=== PATIENT | male | born 1960 | race African-American/Black ===

== ENCOUNTER 2021-01-13 19:29 | Inpatient (IN) | payer OTHER ==
[~2021-01-13] VITALS: Ht 180.3 cm; Wt 102.2 kg
--- NOTE | ~2021-01-13 | EMS ---
[facility] [address] [place] [address] EMS Patient Care Report Name: SAMUEL PASCUAL Room #: 170-10 ADM IN M.R.#: [id number] Admission: 01/13/21 Attend Phys: Pallavi Waldrop MD Discharge: Date of : 58 Report #: [id number] THIS REPORT FOR: //name// Report Transmitted: 01/13/2021 20:25 EMS Care Summary [facility] MED-ACT Incident [id number] @ 01/13/2021 18:57 Incident Location [address], [place] [address] Patient SAMUEL PASCUAL Male, 60 Years 1960 Patient Address [address] [place] [address] Patient History Hypertension (HTN),Pacemaker/AICD,Type 2 Diabetes,Cardiomyopathy, Patient Allergies Diphenhydramine,Sulfa, Patient Medications Unknown, Chief Complaint Unresponsive Disposition Transported No Lights/[place] Reason Unconscious/Fainting Transported To [facility] Narrative 60yom found sitting upright, appearing unresponsive in a chair, extremely diaphoretic in doorway of [facility], with no radial pulse present upon EMS assessment. It was reported that pt requested some water just prior to sitting down, but immediately upon sitting went unresponsive. Pt has history of [facility] [address] [place] [address] EMS Patient Care Report Name: SAMUEL PASCUAL Room #: 170-10 ADM IN Antwon.Annie.#: [id number] Admission: 01/13/21 Attend Phys: Pallavi Waldrop MD Discharge: Date of : 58 Report #: [id number] diabetes, but Raina GALAN found patients bG at 136 just prior to EMS arrival. Pt was with family at the time of incident who reported that pt has had no complaints today and no known vomiting/diarrhea. EMS is informed that pt has a "pacemaker/defibrillator," but other medical history is unknown at the time. Pt was mildly responsive to loud verbal/painful stimuli, but was unable to speak any words. Pt would open his eyes on occasion. Pt was team lifted from chair to cot and placed in trendelenburg position. Pt was secured to cot and moved outside to ambulance. Pt had significant improvement to his LOC upon laying supine for a short time and was able to open his eyes and speak. Pt was moved to ambulance for further evaluation and treatment. Pt reported that he was in from out of town today and was "just getting dinner." Pt stated that he has a history of cardiomyopathy and that is the cause of his hypotension. Pt stated it has happened in the past, but not for a "very long time." Pt stated he received his pacemaker/defibrillator in 2017 and has not had any issues since. Pt recalls asking for water, but this does not recall the events following waking up with EMS. Pt denied any shortness of breath, denied chest pain, N/V/D, recent illness/injury, and states that he feels "completely normal now." EKG and 12 Lead obtained and Raina GALAN spoke with patients on telephone. Pt agreed to transport to [facility] for further evaluation. An IV was established prior to departure of scene and a fluid bolus initiated. Pt remained conversational throughout transport with improvement to his vital signs and physical symptoms. Hospital was contacted with pt information only. Upon arrival to ER, pt is alert and oriented, vital signs improved, with dry skin. Pt was placed in a semi-fowlers position at that time to move inside. Just prior to moving patient from cot to ER bed, pt's skin became clammy again with a last BP that lower than the previous. Pt was again placed in a supine position just prior to sheet lifting him to hospital bed. Pt care was transferred to ER staff without incident. Initial Vitals @19:26BP: 59/38,SpO2: 100, @19:12P: 60, @19:14R: 14,BP: 79/49,Glucose: 136, @19:20P: 60,SpO2: 71, @19:16MI Suspected: false @19:24P: 60,SpO2: 71, @19:21P: 73,R: 14,BP: 86/39,Pain: 0/10,GCS: 15,Temp: 98.7F,SpO2: 95,Revised Trauma: 11, Assessments @19:07MENTAL:Confused,SKIN:Diaphoresis,HEENT:LUNG SOUNDS:General: No Abnormalities,ABDOMEN:General: No Abnormalities,PELVIS//GI:No Abnormalities,EXTREMITIES:Left Arm: No Abnormalities,Right Arm: No [facility] [address] [place] [address] EMS Patient Care Report Name: SAMUEL PASCUAL Room #: 170-10 ADM IN M.R.#: [id number] Admission: 01/13/21 Attend Phys: Pallavi Waldrop MD Discharge: Date of : 58 Report #: [id number] Abnormalities,Left Leg: No Abnormalities,Right Leg: No Abnormalities,PULSE:Radial: 2+ Normal,NEURO:No Abnormalities,@19:26MENTAL:Place Oriented,Person Oriented,Time Oriented,Event Oriented,SKIN:HEENT:Head/Face: No Abnormalities,LUNG SOUNDS:General: No Abnormalities,ABDOMEN:General: No Abnormalities,PELVIS//GI:No Abnormalities,EXTREMITIES:Left Arm: No Abnormalities,Right Arm: No Abnormalities,Left Leg: No Abnormalities,Right Leg: No Abnormalities,PULSE:NEURO:No Abnormalities, Impression Syncope / Fainting Procedures @19:07ALS AssessmentResponse: UnchangedSucceeded@19:1612-Lead ECGResponse: UnchangedSucceeded@19:16Normal Saline (.9% NaCl) 300cc (20 ga) Site: Antecubital-RightResponse: ImprovedSucceeded@19:26Surgical Mask on PatientResponse: Unchanged Timeline 18:56,Call Received 18:56,Psap Call 18:57,Dispatched 18:57,En Route 19:05,On Scene 19:06,At Patient 19:07,ALS Assessment,Response: UnchangedSucceeded, 19:12,BP: / M,PULSE: 60,RR: R,SPO2: Ox,ETCO2: ,BG: ,PAIN: ,GCS: , 19:14,BP: 79/49 M,PULSE: ,RR: 14 R,SPO2: Ox,ETCO2: ,B,PAIN: ,GCS: , 19:16,Normal Saline (.9% NaCl) 300cc 20 ga Site: Antecubital-Right,Response: ImprovedSucceeded, 19:16,12-Lead ECG,Response: UnchangedSucceeded, 19:16,BP: / M,PULSE: ,RR: R,SPO2: Ox,ETCO2: ,BG: ,PAIN: ,GCS: , 19:20,BP: / M,PULSE: 60,RR: R,SPO2: 71 Ox,ETCO2: ,BG: ,PAIN: ,GCS: , 19:21,Depart Scene 19:21,BP: 86/39 M,PULSE: 73,RR: 14 R,SPO2: 95 Ox,ETCO2: ,BG: ,PAIN: 0,GCS: 15, 19:24,BP: / M,PULSE: 60,RR: R,SPO2: 71 Ox,ETCO2: ,BG: ,PAIN: ,GCS: , 19:26,Surgical Mask on Patient,Response: Unchanged 19:26,At Destination 19:26,BP: 59/38 M,PULSE: ,RR: R,SPO2: 100 Ox,ETCO2: ,BG: ,PAIN: ,GCS: , 19:47,Call Closed Disclaimer v1.1 Copyright 2020 [employer] This EMS Care Summary contains data elements from the applicable legal record (which may be displayed differently). It is designed to provide pertinent information for the following purposes: continuity of care, clinical quality, and state data reporting. The complete [place] [address] EMS Patient Care Report Name: SAMUEL PASCUAL Room #: 170-10 ADM IN ..#: [id number] Admission: 01/13/21 Attend Phys: Pallavi Waldrop MD Discharge: Date of : 58 Report #: [id number] and administrators of the receiving hospital in [employer] Patient Tracker. All data is provided "as is."
[2021-01-13 19:32] VITALS: BP 86/43
[2021-01-13 19:54] LABS: BASOPHILS 1.1 % (0.0-2.0); EOSINOPHILS 5.5 % (0.0-3.0); HEMATOCRIT 50.7 % (42.0-52.0); HEMOGLOBIN 17.2 gm/dL (14.0-18.0); LYMPHOCYTES 37.1 % (24.0-44.0); MCH 28.9 pg (26.0-34.0); MCHC 33.8 g/dL (28.0-37.0); MCV 85.4 fL (80.0-100.0); PLATELET COUNT 180 thou/uL (150-400); POLYS 48.3 % (36.0-66.0); RBC 5.94 mil/uL (4.50-6.00); RDW 14.1 % (10.5-14.5); WBC 6.2 thou/uL (4.0-11.0)
[2021-01-13 20:05] LABS: CALCIUM 8.6 mg/dL (8.5-10.1); POTASSIUM 3.7 mmol/L (3.5-5.1)
[2021-01-13 20:14] LABS: APTT 30.2 Seconds (24.5-32.8); INR 1.41; PROTIME 15.1 Seconds (10.5-12.1)
[2021-01-13 20:15] LABS: ALBUMIN 3.9 g/dL (3.4-5.0); TOTAL BILIRUBIN 1.1 mg/dL (0.2-1.0); TOTAL PROTEIN 6.7 g/dL (6.4-8.2); TROPONIN-I 0.1 ng/mL (<0.06)
[2021-01-13 21:33] VITALS: BP 101/55
[2021-01-13 21:42] VITALS: BP 99/56
[2021-01-13 21:50] VITALS: BP 103/63
--- NOTE | 2021-01-13 22:10 | NUR ---
ADMIT FROM EMERGENCY ROOM GOT DIZZY HYPEOTENSIVE AT EATING AT RESTARUANT DIDNT FEEL WELL. FLUIDS GIVEN IN EMERGENCY ROOM.LUNGS ARE CLEAR ON ROOM AIR. BLOOD PRESSURE IMPROVED WITH FLUIDS FROM ER. ABDOMEN IS ROUND BOWEL SOUNDS ACTIVE X4. INSSTRUCTED PT TO CALL AND NOT GET UP UNLESS NEED ASSSTANCE. CALL LIGHT WITHIN REACH IF NEEDS ASSISTANCE
[2021-01-14 00:20] VITALS: BP 123/74
[2021-01-14 03:40] VITALS: BP 137/78
[2021-01-14 06:23] LABS: CALCIUM 8.6 mg/dL (8.5-10.1); CREATININE 1.4 mg/dL (0.7-1.3); MAGNESIUM 2.2 mg/dL (1.8-2.4); POTASSIUM 3.9 mmol/L (3.5-5.1)
[2021-01-14] MEDS ORDERED: VALSARTAN40 MG PO (06:33)
[2021-01-14] MEDS ORDERED: ASPIRIN EC81 M1 PO (06:33)
[2021-01-14] MEDS ORDERED: FUROSEMIDE 20 M20 MG PO (06:33)
[2021-01-14] MEDS ORDERED: METFORMIN HCL500 M3 PO (06:33)
[2021-01-14] MEDS ORDERED: ROSUVASTATIN CA10 MG PO (06:34)
[2021-01-14] MEDS ORDERED: LOPRESSOR50 MG PO (06:34)
[2021-01-14] MEDS ORDERED: ZESTRIL2.5 MG PO (06:34)
[2021-01-14] MEDS ORDERED: LANTUS SUBQ (06:35)
[2021-01-14] MEDS ORDERED: XARELTO20 MG PO (06:35)
[2021-01-14 06:43] LABS: CHOLESTEROL 112 mg/dL (<200); HDL CHOLESTEROL 35 mg/dL (>40); LDL CHOLESTEROL 51 mg/dL (<100); TC:HDL 3.2 Ratio (Not establshd); TRIGLYCERIDE 130 mg/dL (<150); VLDL 26 mg/dL (<40)
[2021-01-14 07:24] VITALS: BP 140/82
--- NOTE | 2021-01-14 08:22 | NUR ---
ASSUMED PT CARE AT 0700. PT RESTING. PT ASSESSMENT PERFORMED CHARTED. VSS. WILL CONTINUE TO MONITOR AND FOLLOW POC. PT DOES NOT VOICE ANY CONCERNS AT THIS TIME.
[2021-01-14] MEDS ORDERED: LIPITOR40 MG PO (09:18)
[2021-01-14] MEDS ORDERED: NOVOLIN 70100 UNIT/3 SUBQ (09:19)
--- NOTE | 2021-01-14 11:47 | NUR ---
PT IN BED TALKING ON PHONE WITH . PTS ASSESSMENT UNCHANGED. VSS. WILL CONTINUE TO MONITOR AND FOLLOW POC.
[2021-01-14 11:56] VITALS: BP 133/77
[2021-01-14 15:27] VITALS: BP 133/77
--- NOTE | 2021-01-15 07:05 | EKG ---
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 : 1960 Requested By: Saray Ball Order Number: [id number] MD: Chico Wang Measurements Intervals [place] Rate: 60 P: NV: 158 QRS: 27 QRSD: 103 T: 174 QT: 455 QTc: 455 Interpretive Statements Atrial-paced rhythm LVH with secondary repolarization abnormality Anterior ST elevation, probably due to LVH No previous ECG available for comparison Electronically Signed On 01-15-2021 7:05:36 CDT by Chico Wang [email or web address] <ELECTRONICALLY SIGNED> By: Chico Wang MD, [facility] 01/15/21704 31 31 Chico Wang MD, FACC /EPI
[2021-01-16 01:06] LABS: GLYCOHEMOGLOBIN (HGB A1C) 8.8 % (4.8-5.6)
== END 2021-01-14 16:10 | disposition home or self-care (01) | DRG 314 ==
LOC: ER 19:29 → EROBS 21:04 → 2N 21:04
PROVIDERS: Emergency Medicine; Nurse Practitioner Acute Care; ADMIT Internal Medicine; ATTEND Internal Medicine
PROC: 4B02XTZ Measurement of Cardiac Defibrillator, External Approach (ICD-10-PCS; principal; 2021-01-14)
DX: I95.9 Hypotension, unspecified (principal); N17.0 Acute kidney failure with tubular necrosis; I42.9 Cardiomyopathy, unspecified; E86.0 Dehydration; I48.91 Unspecified atrial fibrillation; I50.9 Heart failure, unspecified; E78.5 Hyperlipidemia, unspecified; E11.22 Type 2 diabetes mellitus with diabetic chronic kidney disease; F17.210 Nicotine dependence, cigarettes, uncomplicated; N18.30 Chronic kidney disease, stage 3 unspecified; R77.8 Other specified abnormalities of plasma proteins; Z95.810 Presence of automatic (implantable) cardiac defibrillator; Z88.8 Allergy status to other drugs, medicaments and biological substances; Z79.01 Long term (current) use of anticoagulants; Z88.2 Allergy status to sulfonamides; Z79.4 Long term (current) use of insulin; Z79.899 Other long term (current) drug therapy
CPT/HCPCS: 10081